=== PATIENT | male | born 1960 | race American Indian/Alaskan Native ===

== ENCOUNTER 2019-04-30 07:26 | Day surgery (SDC) | payer MEDICAID ==
[2019-04-30] MEDS ORDERED: NACL 0.9% 1000 ML 1,000 ML IV SCH (08:00)
--- NOTE | 2019-04-30 08:59 | Anesthesia Consultation ---
Anesthesia Consult and Med Hx Date of service: 04/30/19 - Airway Anesthetic Teeth Evaluation: Good ROM Head & Neck: Adequate Mental/Hyoid Distance: Adequate Mallampati Class: Class III Intubation Access Assessment: Possibly Difficult - Pulmonary Exam CTA: Yes - Cardiac Exam Cardiac Exam: RRR - Pre-Operative Health Status ASA Pre-Surgery Classification: ASA2 Proposed Anesthetic Plan: MAC - Pulmonary Hx Smoking: Yes (4-5cigs/day) Hx Respiratory Symptoms: No - Cardiovascular System Hx Hypertension: No (HLD) Hx Heart Attack/AMI: No Hx Percutaneous Transluminal Coronary Angioplasty (PTCA): No - Central Nervous System CVA: No - Endocrine Hx Renal Disease: No Hx Liver Disease: No Hx Insulin Dependent Diabetes: No Hx Non-Insulin Dependent Diabetes: No Hx Thyroid Disease: No - Other Systems Hx Obesity: No - Additional Comments Anesthesia Medical History Comments: No hx anesthetic complications.
--- NOTE | 2019-04-30 08:59 | Anesthesia Day of Surgery ---
Anesthesia Day of Surgery - Day of Surgery Patient Examined: Yes Patient H&P Reviewed: Yes Patient is NPO: Yes
[2019-04-30] MEDS ORDERED: XYLOCAINE MPF 2% ONE (09:00)
[2019-04-30] MEDS ORDERED: DIPRIVAN 10 MG/ML IV ONE ×2 (09:16)
[2019-04-30] MEDS ORDERED: WATER FOR IRRIG STERILE IR ONE (09:26)
--- NOTE | 2019-04-30 09:48 | Procedure Note ---
Date of procedure: 04/30/19 Pre-op diagnosis: Colon Polyp Screening Post-op diagnosis: other (Normal Colonoscopy (No Colon Polyps or Diverticular Disease or Internal Hemorrhoids noted)) Procedure: Colonoscopy Anesthesia: MAC Surgeon: MARGOT MARTINEZ Estimated blood loss: none Pathology: none Condition: stable Disposition: same day (Resume home medication and follow up in 1 to 2 weeks ([phone]).)
--- NOTE | 2019-04-30 10:03 | Operative Report ---
INDICATIONS: A 58-year-old -[place] gentleman with an underlying history of benign prostatic hyperplasia and glaucoma, who had a colonoscopy done as part of colon polyp screening. He has never had a colonoscopy done before initial. DESCRIPTION OF PROCEDURE: Procedure was done after getting informed consent with MAC anesthesia. Initial rectal exam was unremarkable. Instrument was passed through the rectum onto the cecum, which was identified with ileocecal valve and the appendiceal orifice. Visualization was fair to good. Cecum, ascending colon, transverse colon, descending colon, and sigmoid showed normal mucosa. There was no evidence of any polyps, colitis or diverticular disease and the rectum appeared normal on the retroverted view. ASSESSMENT: No colon polyp screening, normal colonoscopy. No colon polyps, diverticular disease or internal hemorrhoids noted. There was no bleeding associated with the procedure. No complications associated with the procedure. The patient will be asked to follow up in the office in 1-2 weeks' time. Resume home medication. DESCRIPTION OF PROCEDURE The procedure was done in the GI lab with assistance of anesthesia and in the presence and with the assistance of the GI lab team, which included Carla LOCKE and Ramandeep jaimes. JOB# [id number] JB/MIL
[2019-04-30 10:17] VITALS: BP 123/88
== END 2019-04-30 07:27 | disposition home or self-care (01) ==
LOC: GIO 07:26
DX: Z12.11 Encounter for screening for malignant neoplasm of colon (principal); H40.9 Unspecified glaucoma; E78.00 Pure hypercholesterolemia, unspecified; I10 Essential (primary) hypertension; N40.0 Benign prostatic hyperplasia without lower urinary tract symptoms; F17.210 Nicotine dependence, cigarettes, uncomplicated; Z98.890 Other specified postprocedural states; Z88.0 Allergy status to penicillin; Z88.6 Allergy status to analgesic agent; Z79.899 Other long term (current) drug therapy
CPT/HCPCS: 45378; J2704; J7030

== ENCOUNTER 2022-05-20 17:09 | Emergency (ER) | payer MEDICAID ==
--- NOTE | 2022-05-20 23:03 | XRay Report ---
CHEST 2 VIEWS INDICATION / CLINICAL INFORMATION: cough and sob. COMPARISON: None available. FINDINGS: SUPPORT DEVICES: None. HEART / MEDIASTINUM: Heart size and mediastinal contour appear within normal limits. LUNGS / PLEURA: Emphysematous changes appear moderate. Left lower lobe airspace opacities in the left cardiophrenic angle are demonstrated. No obvious pulmonary nodules. No pneumothorax. BONES: No significant osseous abnormality. ADDITIONAL FINDINGS: No significant additional findings. IMPRESSION: 1. Airspace opacities left lower lobe could reflect pneumonia in the setting of emphysema. Follow-up recommended to ensure complete resolution. Signer Name: Fletcher Santana II, MD Signed: 05/20/2022 10:58 PM Workstation Name: [id number]
--- NOTE | 2022-05-21 00:58 | Emergency Department Report ---
ED General Adult HPI - General Chief complaint: Upper Respiratory Infection Stated complaint: GENERAL WEAKNESS Time Seen by Provider: 05/20/22 20:53 Source: patient, EMS Mode of arrival: Ambulatory Limitations: No Limitations - History of Present Illness Initial comments: 61-year-old -[place] male smoker presents emerged department complaining of a 3 to 4-day history of cough congestion coryza with mucus production fever sensation and is in a suspicion for COVID-19. Reports no hemoptysis no hematemesis medic easier, no diarrhea, no rashes, no sore throat. No odynophagia or dysphagia. Radiation: non-radiation Severity scale (0 -10): 0 Quality: dull Consistency: constant Improves with: none Worsens with: none Associated Symptoms: chest pain, cough, fever/chills, loss of appetite. denies: diaphoresis, malaise, nausea/vomiting, rash, syncope, weakness Treatments Prior to Arrival: none - Related Data Home Medications Medication Instructions Recorded Confirmed Last Taken Latanoprost 0.005% 1 drop OU HS 04/30/19 04/30/19 04/29/19 Methylprednisolone 1 tab PO DAILY 04/30/19 04/30/19 Unknown Naproxen 1 tab PO DAILY 04/30/19 04/30/19 Unknown Pravastatin 1 tab PO DAILY 04/30/19 04/30/19 Unknown Tamsulosin 0.4 mg PO DAILY 04/30/19 04/30/19 Unknown Terbinafine 1 tab PO DAILY 04/30/19 04/30/19 Unknown Previous Rx's Medication Instructions Recorded Last Taken Type Albuterol Mdi (or & Nicu Only) 1 puff IH Q4-6H PRN #1 inha 05/21/22 Unknown Rx [ProAir HFA Inhaler] Azithromycin [Zithromax] 500 mg PO QDAY #5 tablet 05/21/22 Unknown Rx Benzonatate [Tessalon Perles] 100 mg PO Q8HR #20 capsule 05/21/22 Unknown Rx Allergies Allergy/AdvReac Type Severity Reaction Status Date / Time Penicillins Allergy Swelling Verified 05/20/22 17:41 aspirin AdvReac Unknown Verified 05/20/22 17:41 ED Review of Systems ROS: Stated complaint: GENERAL WEAKNESS Other details as noted in HPI Comment: All other systems reviewed and negative ED Past Medical Hx - Past Medical History Hx Hypertension: No (HLD) Hx Heart Attack/AMI: No Hx Liver Disease: No Hx Renal Disease: No Hx Psychiatric Treatment: Yes Additional medical history: glaucoma - Social History Smoking Status: Current Every Day Smoker - Medications Home Medications: Home Medications Medication Instructions Recorded Confirmed Last Taken Type Latanoprost 0.005% 1 drop OU HS 04/30/19 04/30/19 04/29/19 History Methylprednisolone 1 tab PO DAILY 04/30/19 04/30/19 Unknown History Naproxen 1 tab PO DAILY 04/30/19 04/30/19 Unknown History Pravastatin 1 tab PO DAILY 04/30/19 04/30/19 Unknown History Tamsulosin 0.4 mg PO DAILY 04/30/19 04/30/19 Unknown History Terbinafine 1 tab PO DAILY 04/30/19 04/30/19 Unknown History Albuterol Mdi (or & Nicu Only) 1 puff IH Q4-6H PRN #1 inha 05/21/22 Unknown Rx [ProAir HFA Inhaler] Azithromycin [Zithromax] 500 mg PO QDAY #5 tablet 05/21/22 Unknown Rx Benzonatate [Tessalon Perles] 100 mg PO Q8HR #20 capsule 05/21/22 Unknown Rx ED Physical Exam - General Limitations: No Limitations General appearance: alert, in no apparent distress - Head Head exam: Present: atraumatic, normocephalic, normal inspection - Eye Eye exam: Present: normal appearance, PERRL, EOMI. Absent: scleral icterus, conjunctival injection Pupils: Present: normal accommodation - ENT ENT exam: Present: mucous membranes moist - Neck Neck exam: Present: normal inspection, full ROM - Respiratory Respiratory exam: Present: normal lung sounds bilaterally, rhonchi, decreased breath sounds. Absent: respiratory distress, wheezes, rales, chest wall tenderness, accessory muscle use - Cardiovascular Cardiovascular Exam: Present: regular rate, normal rhythm. Absent: systolic murmur, diastolic murmur, rubs, gallop - GI/Abdominal GI/Abdominal exam: Present: soft, normal bowel sounds - Rectal Rectal exam: Present: deferred - Extremities Exam Extremities exam: Present: normal inspection - Back Exam Back exam: Present: normal inspection - Neurological Exam Neurological exam: Present: alert, oriented X3 - Psychiatric Psychiatric exam: Present: normal affect, normal mood - Skin Skin exam: Present: warm, dry, intact, normal color. Absent: rash ED Course Vital Signs 05/20/22 05/20/22 17:09 21:31 Temperature 99.4 F Pulse Rate 104 H 87 Respiratory 18 12 Rate Blood Pressure 138/88 123/75 [Left] O2 Sat by Pulse 91 94 Oximetry ED Medical Decision Making - Radiology Data Radiology results: report reviewed [facility] [address] [place] [address] XRay Report Signed Patient: YASMANY LEON MR#: [id number] : 1960 Acct:[id number] Age/Sex: 61 / M ADM Date: 05/20/22 Loc: ED Attending Dr: Ordering Physician: GARY GRIMM Date of Service: 05/20/22 Procedure(s): XR chest routine 2V Accession Number(s): [id number] cc: GARY GRIMM Fluoro Time In Minutes: CHEST 2 VIEWS INDICATION / CLINICAL INFORMATION: cough and sob. COMPARISON: None available. FINDINGS: SUPPORT DEVICES: None. HEART / MEDIASTINUM: Heart size and mediastinal contour appear within normal limits. LUNGS / PLEURA: Emphysematous changes appear moderate. Left lower lobe airspace opacities in the left cardiophrenic angle are demonstrated. No obvious pulmonary nodules. No pneumothorax. BONES: No significant osseous abnormality. ADDITIONAL FINDINGS: No significant additional findings. IMPRESSION: 1. Airspace opacities left lower lobe could reflect pneumonia in the setting of emphysema. Follow- up recommended to ensure complete resolution. Signer Name: Kirk Santana II, MD Signed: 05/20/2022 10:58 PM Workstation Name: [id number] Transcribed By: THOR Dictated By: KIRK SANTANA II, MD Electronically Authenticated By: KIRK SANTANA II, MD Signed Date/Time: 05/20/222257 DD/ 57 TD/TT: - Medical Decision Making This patient presents with acute cough, most consistent with pneumonia. Differential diagnosis includes bronchitis, COVID-19, pneumonia, hyperreactive airway disease. Presentation not consistent with acute bacterial pneumonia, influenza, asthma, transient airway hyperresponsiveness. Presentation not consistent with chronic causes of cough (including GERD, asthma, postnasal discharge, medication side effect, CHF, lung cancer or mass). Plan: , Chest x-ray shows infiltrate will treat accordingly antibiotics cough medication and. Albuterol Critical care attestation.: If time is entered above; I have spent that time in minutes in the direct care of this critically ill patient, excluding procedure time. ED Disposition Clinical Impression: Cough, Pneumonia Disposition: HOME / SELF CARE / HOMELESS Is pt being admited?: No Does the pt Need Aspirin: No Instructions: Bacterial Pneumonia (ED), Cough, Adult, Community-Acquired Pneumonia, Adult, Cool Mist Vaporizer Prescriptions: Albuterol Mdi (or & Nicu Only) [ProAir HFA Inhaler] 1 puff IH Q4-6H PRN #1 inha PRN Reason: Cough Benzonatate [Tessalon Perles] 100 mg PO Q8HR #20 capsule Azithromycin [Zithromax] 500 mg PO QDAY #5 tablet Referrals: [facility] [Provider Group] - 3-5 Days
[2022-05-21 01:53] VITALS: BP 131/76
== END 2022-05-21 01:53 | disposition home or self-care (01) ==
LOC: ED 17:09
DX: R05.9 Cough, unspecified (principal); J18.9 Pneumonia, unspecified organism; Z13.30 Encounter for screening examination for mental health and behavioral disorders, unspecified; F17.200 Nicotine dependence, unspecified, uncomplicated; Z88.0 Allergy status to penicillin; Z91.09 Other allergy status, other than to drugs and biological substances
CPT/HCPCS: 71046; 99283